=== PATIENT | male | born 1980 | race African-American/Black ===

== ENCOUNTER 2023-01-27 20:12 | Emergency (ER) | payer SELFPAY ==
[~2023-01-27] VITALS: Ht 188 cm; Wt 113.4 kg
[2023-01-27 20:24] VITALS: BP_SYST 141; PULSE 74; RESP 16; TEMP 96.9; O2SAT 100
--- NOTE | 2023-01-27 21:45 | NUR ---
PT BIB SELF FROM HOME C/O RT GROIN PAIN 01/06 THAT DOES NOT RADIATE. PT STATES DRAINED FLUID FROM ABCESS THIS AM. PT DENIES PREVIOUS HX. PT RESTING IN BED WITH RAILS UP VSS
--- NOTE | 2023-01-27 21:50 | NUR ---
ER at bedside examining patient.
[2023-01-27] MEDS ORDERED: VANCOMYCIN HCL 1,000 MG in NS 250 ML IV ONE (22:00)
[2023-01-27] MEDS ORDERED: VANCOMYCIN HCL 1000 MG/VIAL IV ONE (22:21)
--- NOTE | 2023-01-27 23:30 | NUR ---
PT SLEEPING COMFORTABLY IN BED WITH RAILS UP VSS
[2023-01-28] MEDS ORDERED: SULF1TAB48 PO (00:45)
[2023-01-28] MEDS ORDERED: CHLO118L TP (00:45)
[2023-01-28] MEDS ORDERED: CEPH-548 PO (00:45)
[2023-01-28 00:55] VITALS: BP_SYST 146; PULSE 71; RESP 16; TEMP 97.5; O2SAT 94
--- NOTE | 2023-01-28 00:55 | NUR ---
Patient given written and verbal discharge instructions and verbalizes understanding. ER MD discussed with patient the results and treatment provided. Patient in stable condition. ID arm band removed. IV catheter removed intact and dressing applied, no active bleeding. Rx of CEPHALEXIN, CHLORHEXIDINE GLUCONATE, AND BCTRIM DS TABLET given. Patient educated on MRSA INFECTION and to follow up with PMD. Pain Scale . Opportunity for questions provided and answered. Medication side effect fact sheet provided.
== END 2023-01-28 00:55 | disposition home or self-care (01) ==
LOC: SED 20:12
DX: L03.314 Cellulitis of groin (principal); L02.415 Cutaneous abscess of right lower limb; Z79.899 Other long term (current) drug therapy
CPT/HCPCS: 99284; 96365; 87040; 36415; J3370

== ENCOUNTER 2023-11-04 23:12 | Inpatient (IN) | payer SELFPAY ==
[~2023-11-04] VITALS: Ht 183.3 cm; Wt 115.2 kg
[~2023-11-04 23:12] MED LIST: CEPH-548 PO; CHLO118L TP; SULF1TAB48 PO
[2023-11-04 23:38] VITALS: BP_SYST 132; PULSE 77; RESP 14; TEMP 97.7; O2SAT 96
[2023-11-05 00:03] LABS: BILIRUBIN,URINE NEGATIVE (NEGATIVE); BLOOD, URINE NEGATIVE (NEGATIVE); CLARITY/URINE CLEAR (CLEAR); COLOR,URINE YELLOW (YELLOW); GLUCOSE,URINE NEGATIVE (NEGATIVE); KETONES,URINE NEGATIVE (NEGATIVE); LEUKOCYTE ESTERASE ,URINE NEGATIVE (NEGATIVE); NITRITE, URINE NEGATIVE (NEGATIVE); PROTEIN URINE NEGATIVE (NEGATIVE); UROBILINOGEN,URINE 0.2 (0.2-1.0)
[2023-11-05 00:17] LABS: BASOPHILS # (AUTO) 0.1 K/uL (0.0-0.2); BASOPHILS % (AUTO) 1.1 % (0.0-2.0); EOSINOPHILS # (AUTO) 0.1 K/uL (0.0-0.4); EOSINOPHILS % (AUTO) 1.4 % (0.0-4.0); HEMATOCRIT 42.5 % (36-54); HEMOGLOBIN 14.6 g/dL (14.0-18.0); LYMPHOCYTES # (AUTO) 3.7 K/uL (1.0-5.5); LYMPHOCYTES % (AUTO) 49.9 % (20.5-51.5); MEAN CORPUSCULAR HEMOGLOBIN 31 pg (27-31); MEAN CORPUSCULAR HGB CONC 34 % (32-36); MEAN CORPUSCULAR VOLUME 89 fL (79.0-98.0); MONOCYTES # (AUTO) 0.8 K/uL (0.0-1.0); MONOCYTES % (AUTO) 10.3 % (1.7-9.3); NEUTROPHILS # (AUTO) 2.8 K/uL (1.8-7.7); NEUTROPHILS % (AUTO) 37.3 % (40.0-70.0); PLATELET COUNT (AUTO) 303 K/uL (130-430); RED BLOOD CELL COUNT(AUTO) 4.77 MIL/uL (4.2-6.2); RED CELL DISTRIBUTION WIDTH 13.5 % (9.0-15.0); WHITE BLOOD COUNT (AUTO) 7.4 K/uL (4.8-10.8)
[2023-11-05 00:34] LABS: ALBUMIN 3.3 g/dL (3.4-4.8); BILIRUBIN,DIRECT 0.1 mg/dL (0.0-0.3); CALCIUM 8.6 mg/dL (8.4-11.0); CREATININE 1.66 mg/dL (0.55-1.30); POTASSIUM 3.7 mmol/L (3.5-5.1); TOTAL BILIRUBIN 0.4 mg/dL (0.0-1.0); TOTAL PROTEIN, SERUM 7.4 g/dL (6.4-8.3)
[2023-11-05] MEDS ORDERED: ACETAMINOPHEN 325 MG TABLET PO PRN ×3 (01:15→07:30)
[2023-11-05] MEDS ORDERED: HYDROcodone/ACETAMIN 5-325 MG TAB (NORCO/ VICODIN) PO PRN ×2 (01:15→07:15)
[2023-11-05 05:31] LABS: BARBITURATE, URINE NEGATIVE (NEG <=200); BENZODIAZEPINE, URINE NEGATIVE (NEG <=150); CANNABINOID, URINE POSITIVE (NEG <=50); COCAINE, URINE NEGATIVE (NEG <=150); METHAMPHETAMINES SCREEN,URINE POSITIVE (NEG <=500); PHENCYCLIDINE SCREEN,URINE NEGATIVE (NEG <=25); URINE AMPHETAMINE POSITIVE (NEG <=500); URINE METHADONE NEGATIVE (NEG <=200)
[2023-11-05 05:32] LABS: OPIATE, URINE NEGATIVE (NEG <=100); UR TRICYCLIC ANTIDEPRESSANTS NEGATIVE (NEG <=300); URINE OXYCODONE SCREEN NEGATIVE (NEG <=100)
[2023-11-05] MEDS ORDERED: ONDANSETRON HCL 4 MG/2 ML VIAL IVP PRN (07:15)
[2023-11-05 09:07] LABS: BASOPHILS # (AUTO) 0.1 K/uL (0.0-0.2); BASOPHILS % (AUTO) 0.9 % (0.0-2.0); EOSINOPHILS # (AUTO) 0.1 K/uL (0.0-0.4); EOSINOPHILS % (AUTO) 1.4 % (0.0-4.0); HEMOGLOBIN 15.3 g/dL (14.0-18.0); LYMPHOCYTES # (AUTO) 3.1 K/uL (1.0-5.5); LYMPHOCYTES % (AUTO) 43.2 % (20.5-51.5); MEAN CORPUSCULAR HEMOGLOBIN 31 pg (27-31); MEAN CORPUSCULAR HGB CONC 34 % (32-36); MEAN CORPUSCULAR VOLUME 91 fL (79.0-98.0); MONOCYTES # (AUTO) 0.8 K/uL (0.0-1.0); MONOCYTES % (AUTO) 10.7 % (1.7-9.3); NEUTROPHILS # (AUTO) 3.1 K/uL (1.8-7.7); NEUTROPHILS % (AUTO) 43.8 % (40.0-70.0); PLATELET COUNT (AUTO) 308 K/uL (130-430); RED BLOOD CELL COUNT(AUTO) 4.95 MIL/uL (4.2-6.2); WHITE BLOOD COUNT (AUTO) 7.2 K/uL (4.8-10.8)
[2023-11-05 09:09] LABS: ERYTHROCYTE SEDIMENTATION RATE 7 MM/HR (0-15)
[2023-11-05 09:10] VITALS: BP_SYST 145; PULSE 55; RESP 15; TEMP 97.8
[2023-11-05 09:37] LABS: ALBUMIN 3.4 g/dL (3.4-4.8); CALCIUM 7.9 mg/dL (8.4-11.0); CREATININE 1.6 mg/dL (0.55-1.30); TOTAL BILIRUBIN 0.4 mg/dL (0.0-1.0); TOTAL PROTEIN, SERUM 7.3 g/dL (6.4-8.3)
[2023-11-05 11:09] LABS: PHOSPHORUS 3.6 mg/dL (2.7-4.5); URIC ACID 6.3 mg/dL (2.4-7.0)
[2023-11-05] MEDS ORDERED: ZOLPIDEM TARTRATE 5 MG TABLET PO PRN (11:45)
[2023-11-05 12:55] VITALS: BP_SYST 150; PULSE 68; RESP 16; TEMP 97.6; O2SAT 97
[2023-11-05] MEDS: hydrALAZINE HCL 25 MG TABLET PO SCH (15:19)
[2023-11-05 16:02] VITALS: BP_SYST 132; PULSE 60; RESP 17; TEMP 97.8; O2SAT 97
[2023-11-05] MEDS: TAMSULOSIN HCL 0.4 MG CAP PO ONE (16:36)
[2023-11-05 20:00] VITALS: BP_SYST 155; PULSE 81; RESP 18; TEMP 97.2; O2SAT 96
[2023-11-05] MEDS: HEPARIN SODIUM,PORCINE 5,000 UNITS/ML VIAL SUBCUT SCH (21:05)
[2023-11-05 22:25] LABS: URINE SODIUM, RANDOM 173 mmol/L (40-220)
[2023-11-06] VITALS: BP_SYST 139; PULSE 78; RESP 18; TEMP 97.8; O2SAT 97
[2023-11-06 05:00] LABS: CALCIUM 8.8 mg/dL (8.4-11.0); CREATININE 1.63 mg/dL (0.55-1.30); POTASSIUM 4.2 mmol/L (3.5-5.1)
[2023-11-06 08:05] VITALS: BP_SYST 133; PULSE 77; RESP 17; TEMP 98.1; O2SAT 98
[2023-11-06] MEDS: TAMSULOSIN HCL 0.4 MG CAP PO SCH (09:01)
[2023-11-06] MEDS ORDERED: TAMS-11 PO (10:50)
[2023-11-06] MEDS ORDERED: AMLO5TAB92 PO (10:50)
[2023-11-06 11:48] VITALS: BP_SYST 156; PULSE 78; RESP 19; TEMP 98.1; O2SAT 98
[2023-11-07 11:07] LABS: CREATININE, URINE 155.2 mg/dL (Not Estab.); MICROALBUMIN URINE RANDOM < 3.0 ug/mL (Not Estab.); MICROALBUMIN/CREAT RATIO, UR <2 mg/g creat (0-29)
== END 2023-11-06 12:20 | disposition home or self-care (01) | DRG 554 ==
LOC: SED 23:12 → SMU 11-05 01:14
PROVIDERS: ADMIT Internal Medicine; ATTEND Internal Medicine
DX: M19.072 Primary osteoarthritis, left ankle and foot (principal); N17.9 Acute kidney failure, unspecified; M19.071 Primary osteoarthritis, right ankle and foot; N40.0 Benign prostatic hyperplasia without lower urinary tract symptoms; R73.03 Prediabetes; F15.10 Other stimulant abuse, uncomplicated; I12.9 Hypertensive chronic kidney disease with stage 1 through stage 4 chronic kidney disease, or unspecified chronic kidney disease; N18.30 Chronic kidney disease, stage 3 unspecified; Z79.899 Other long term (current) drug therapy
CPT/HCPCS: 36415; 76770; 80048; 80053; 80076; 80307; 81001; 81003; 82043; 82570; 83037; 83880; 84100; 84302; 84550; 85025; 85651; 93306; 93970; 99285; J1644

== ENCOUNTER 2023-11-20 19:44 | Emergency (ER) | payer SELFPAY ==
[~2023-11-20] VITALS: Ht 188 cm; Wt 113.4 kg
[~2023-11-20 19:44] MED LIST changes: +AMLO5TAB92 PO; -CEPH-548 PO; -CHLO118L TP; -SULF1TAB48 PO; +TAMS-11 PO
[2023-11-20 20:09] VITALS: BP_SYST 122; PULSE 115; RESP 20; TEMP 102.1; O2SAT 95
[2023-11-20 21:31] LABS: INFLUENZA TYPE A Negative (NEGATIVE); INFLUENZA TYPE B NEGATIVE (NEGATIVE)
[2023-11-20] MEDS ORDERED: AZITHROMYCIN 500 MG/VIAL (ZITHROMAX) IV ONE (21:54)
[2023-11-20] MEDS: IBUPROFEN 600 MG TABLET PO ONE (21:57)
[2023-11-20] MEDS: ACETAMINOPHEN 500 MG TABLET PO ONE (22:01)
[2023-11-20] MEDS: NACL 0.9% 2,000 ML IV ONE (22:02)
[2023-11-20] MEDS: cefTRIAXone 1 GM IVPB PREMIX 50 ML IV ONE (22:05)
[2023-11-20] MEDS: AZITHROMYCIN 500 MG in NS 250 ML IV ONE (23:25)
[2023-11-21 01:31] LABS: BASOPHILS # (AUTO) 0.1 K/uL (0.0-0.2); BASOPHILS % (AUTO) 0.6 % (0.0-2.0); HEMATOCRIT 44.6 % (36-54); LYMPHOCYTES # (AUTO) 2.2 K/uL (1.0-5.5); MEAN CORPUSCULAR HEMOGLOBIN 30 pg (27-31); MEAN CORPUSCULAR HGB CONC 34 % (32-36); MEAN CORPUSCULAR VOLUME 90 fL (79.0-98.0); MONOCYTES # (AUTO) 1.9 K/uL (0.0-1.0); MONOCYTES % (AUTO) 10.4 % (1.7-9.3); NEUTROPHILS # (AUTO) 13.9 K/uL (1.8-7.7); PLATELET COUNT (AUTO) 239 K/uL (130-430); RED BLOOD CELL COUNT(AUTO) 4.96 MIL/uL (4.2-6.2); RED CELL DISTRIBUTION WIDTH 13.6 % (9.0-15.0)
[2023-11-21 01:55] LABS: CALCIUM 7.9 mg/dL (8.4-11.0); CREATININE 1.63 mg/dL (0.55-1.30); POTASSIUM 3.6 mmol/L (3.5-5.1)
[2023-11-21] MEDS ORDERED: CLAR-61 PO (02:31)
[2023-11-21 02:36] VITALS: BP_SYST 133; PULSE 88; RESP 16; TEMP 97.9; O2SAT 96
== END 2023-11-21 02:36 | disposition home or self-care (01) ==
LOC: SED 19:44
DX: J18.9 Pneumonia, unspecified organism (principal); R50.9 Fever, unspecified; Z20.822 Contact with and (suspected) exposure to COVID-19; Z79.899 Other long term (current) drug therapy; Z79.2 Long term (current) use of antibiotics
CPT/HCPCS: 99285; 96365; 71260; 71045; 96367; 87426; 80048; 85025; 87040; 36415; 83605; 87804 ×2; J0456; J0696; Q9967